=== PATIENT | male | born 1965 | race Two or more races ===

== ENCOUNTER 2017-09-24 09:06 | Outpatient (CLI) | payer OTHER ==
[~2017-09-24 09:06] MED LIST: CLONAZEPAM0.5 MG; PROZAC10 M1; SEROQUEL25 MG
== END 2017-09-24 09:14 | disposition home or self-care (01) ==
LOC: RAD 501 09:06
DX: R76.11 Nonspecific reaction to tuberculin skin test without active tuberculosis (principal)

== ENCOUNTER → 2020-11-05 | Outpatient (CLI) | payer OTHER | END | disposition home or self-care (01) | LOC: RAD 09:52 | DX: M75.21 Bicipital tendinitis, right shoulder (principal) ==